=== PATIENT | male | born 1970 | race Caucasian/White ===

== ENCOUNTER 2021-03-20 06:14 | Day surgery (SDC) | payer BC, SELFPAY ==
[~2021-03-20] VITALS: Ht 170.2 cm; Wt 83.9 kg
[~2021-03-20 06:14] MED LIST: VALS1TAB2 PO
[2021-03-20] MEDS ORDERED: BUPIVACAINE LIPOSOME/PF 266 MG/20 ML VIAL INFIL ONE (07:12)
[2021-03-20] MEDS ORDERED: POLYMYXIN 500,000/BACIT.10,000 UNITS in NS IRR 1 L IR ONE (07:12)
[2021-03-20] MEDS ORDERED: CEFAZOLIN SOD 2 GM in D5W 50 ML IV ONE (07:15)
[2021-03-20] MEDS ORDERED: SUCCINYLCHOLINE CHLORIDE 20 MG/ML(QUELICIN) IVP ONE (08:00)
[2021-03-20] MEDS ORDERED: ROCURONIUM BROMIDE 10 MG/ML (ZEMURON) IV ONE (08:00)
[2021-03-20] MEDS ORDERED: MEPERIDINE 50 MG/ML VIAL IM ONE (08:00)
[2021-03-20] MEDS ORDERED: SUGAMMADEX SODIUM 200 MG/2 ML VIAL IV ONE (08:00)
[2021-03-20] MEDS ORDERED: NS IRRIG SOLN 1000 ML IR ONE (08:00)
[2021-03-20] MEDS ORDERED: fentaNYL CITRATE/PF 100 MCG/2 ML AMP IVP ONE (08:00)
[2021-03-20] MEDS ORDERED: METOCLOPRAMIDE HCL 10 MG/2 ML VIAL IVP ONE (08:00)
[2021-03-20] MEDS ORDERED: MIDAZOLAM HCL 5 MG/5 ML VIAL IVP ONE (08:00)
[2021-03-20] MEDS ORDERED: PROPOFOL 200MG/ 20ML VIAL (DIPRIVAN) IV ONE (08:00)
[2021-03-20] MEDS ORDERED: DEXAMETHASONE SOD PHOSPHATE 4 MG/ML VIAL IVP ONE (08:00)
[2021-03-20] MEDS ORDERED: SEVOFLURANE 15 MIN GAS INH ONE (08:00)
[2021-03-20] MEDS ORDERED: KETOROLAC TROMETHAMINE 30 MG VIAL IVP ONE (08:00)
[2021-03-20] MEDS ORDERED: ONDANSETRON HCL 4 MG/2 ML VIAL IVP PRN (09:00)
[2021-03-20] MEDS ORDERED: LR 1,000 ML IV SCH (09:00)
[2021-03-20] MEDS ORDERED: MEPERIDINE HCL/PF 25 MG/ML DISP.SYRIN IVP PRN (09:00)
[2021-03-20] MEDS ORDERED: HYDROmorphone 1 MG/ML INJ. CARTRIDGE IVP PRN ×2 (09:00)
[2021-03-20] MEDS ORDERED: METOCLOPRAMIDE HCL 10 MG/2 ML VIAL IVP PRN (09:00)
[2021-03-20 12:26] VITALS: BP_SYST 128
== END 2021-03-20 12:15 | disposition home or self-care (01) ==
LOC: SDS 06:14 → SMU 06:14 → SDS 12:15
PROVIDERS: ATTEND Surgery
DX: K40.90 Unilateral inguinal hernia, without obstruction or gangrene, not specified as recurrent (principal); K42.9 Umbilical hernia without obstruction or gangrene; R10.2 Pelvic and perineal pain; R10.33 Periumbilical pain; N50.812 Left testicular pain; I10 Essential (primary) hypertension; E78.00 Pure hypercholesterolemia, unspecified; Z79.899 Other long term (current) drug therapy
CPT/HCPCS: 36415; 49505; 49585; 87426; 88304; C1781; C9290; C9399; J0330; J0690; J1100; J1885; J2175; J2250; J2704; J2765; J3010; J7060; J7120; 88302

== ENCOUNTER 2022-10-23 01:41 | Emergency (ER) | payer BC ==
[~2022-10-23] VITALS: Ht 170.2 cm; Wt 81.6 kg
[2022-10-23 01:50] VITALS: BP_SYST 150
--- NOTE | 2022-10-23 01:50 | NUR ---
Patient triaged and placed in tent. VSS and patient appears in no acute distress at this time.MD notified of need for MSE.
--- NOTE | 2022-10-23 02:13 | NUR ---
Chest xray performed at the bedside.
[2022-10-23] MEDS ORDERED: ALBUTEROL SULFATE 0.083% 2.5 MG/3 ML VIAL.NEB INH ONE (02:15)
--- NOTE | 2022-10-23 02:30 | NUR ---
RT at the bedside for breathing tx.
--- NOTE | 2022-10-23 03:04 | NUR ---
Pt sts feeling better.
--- NOTE | 2022-10-23 03:17 | NUR ---
ER at bedside examining patient in tent.
[2022-10-23] MEDS ORDERED: predniSONE 20 MG TABLET PO ONE (04:15)
[2022-10-23] MEDS ORDERED: PRED20TA PO (05:39)
[2022-10-23] MEDS ORDERED: ALBMDI INH (05:39)
--- NOTE | 2022-10-23 05:54 | NUR ---
Patient given written and verbal discharge instructions and verbalizes understanding. ER MD discussed with patient the results and treatment provided. Patient in stable condition. ID arm band removed. Rx of Prednisone and Albuterol given. Patient educated on pain management and to follow up with PMD. Pain Scale 0/10. Opportunity for questions provided and answered. Medication side effect fact sheet provided.
[2022-10-23 05:56] VITALS: BP_SYST 127
== END 2022-10-23 05:56 | disposition home or self-care (01) ==
LOC: SED 01:41
DX: U07.1 COVID-19 (principal); J20.9 Acute bronchitis, unspecified; R05.9 Cough, unspecified; R06.02 Shortness of breath; R09.81 Nasal congestion; Z79.899 Other long term (current) drug therapy
CPT/HCPCS: 36415; 93005; 71045; 94640; 99285; 87804 ×2; 87426; J7512; J7613